=== PATIENT | male | born 1980 | race Caucasian/White ===

== ENCOUNTER 2020-07-21 12:04 | Emergency (ER) | payer OTHER ==
[~2020-07-21] VITALS: Ht 193 cm; Wt 153.3 kg
[2020-07-21] MEDS ORDERED: MEDROL DOSEPAK4 MG PO (15:29)
[2020-07-21] MEDS ORDERED: METHOCARBAMOL500 M1 PO (15:29)
== END 2020-07-21 15:31 | disposition home or self-care (01) ==
LOC: ED 12:04
DX: S39.012A Strain of muscle, fascia and tendon of lower back, initial encounter (principal); S86.912A Strain of unspecified muscle(s) and tendon(s) at lower leg level, left leg, initial encounter; Z79.899 Other long term (current) drug therapy; X58.XXXA Exposure to other specified factors, initial encounter; Y93.89 Activity, other specified; Y92.89 Other specified places as the place of occurrence of the external cause; Y99.8 Other external cause status

== ENCOUNTER 2021-04-14 13:38 | Emergency (ER) | payer OTHER ==
[~2021-04-14] VITALS: Ht 195.5 cm; Wt 155.1 kg
[~2021-04-14 13:38] MED LIST: MEDROL DOSEPAK4 MG PO; METHOCARBAMOL500 M1 PO
[2021-04-14] MEDS ORDERED: CLARITIN10 MG PO (14:08)
[2021-04-14] MEDS ORDERED: FLONASE ALLERG9.9 ML NAS (14:08)
== END 2021-04-14 14:14 | disposition home or self-care (01) ==
LOC: ED 13:38
DX: J30.9 Allergic rhinitis, unspecified (principal); Z20.822 Contact with and (suspected) exposure to COVID-19; E66.9 Obesity, unspecified; Z88.8 Allergy status to other drugs, medicaments and biological substances; Z79.899 Other long term (current) drug therapy; Z98.890 Other specified postprocedural states

== ENCOUNTER 2021-05-25 09:26 | Emergency (ER) | payer OTHER ==
[~2021-05-25] VITALS: Ht 193 cm; Wt 161.0 kg
[~2021-05-25 09:26] MED LIST changes: +CLARITIN10 MG PO; +FLONASE ALLERG9.9 ML NAS
[2021-05-25] MEDS ORDERED: METHOCARBAMOL500 M1 PO (13:22)
[2021-05-25] MEDS ORDERED: PREDNISONE20 M1 PO (13:22)
== END 2021-05-25 13:37 | disposition home or self-care (01) ==
LOC: ED 09:26
DX: M54.41 Lumbago with sciatica, right side (principal); J02.8 Acute pharyngitis due to other specified organisms; B34.8 Other viral infections of unspecified site; Z88.6 Allergy status to analgesic agent; Z79.899 Other long term (current) drug therapy

== ENCOUNTER 2021-06-18 15:18 | Emergency (ER) | payer OTHER ==
[~2021-06-18] VITALS: Ht 195.5 cm; Wt 156.5 kg
[~2021-06-18 15:18] MED LIST changes: +PREDNISONE20 M1 PO
[2021-06-18] MEDS ORDERED: HYDROCODONE-AC1 EAC1 PO (19:11)
== END 2021-06-18 19:48 | disposition home or self-care (01) ==
LOC: ED 15:18
DX: S20.212A Contusion of left front wall of thorax, initial encounter (principal); R10.12 Left upper quadrant pain; R07.81 Pleurodynia; Z98.890 Other specified postprocedural states; Z88.6 Allergy status to analgesic agent; Z79.899 Other long term (current) drug therapy; W22.8XXA Striking against or struck by other objects, initial encounter; Y93.16 Activity, rowing, canoeing, kayaking, rafting and tubing; Y92.828 Other wilderness area as the place of occurrence of the external cause; Y99.8 Other external cause status

== ENCOUNTER 2021-06-26 21:10 | Emergency (ER) | payer OTHER ==
[~2021-06-26] VITALS: Ht 195.5 cm; Wt 158.8 kg
[~2021-06-26 21:10] MED LIST changes: +HYDROCODONE-AC1 EAC1 PO
== END 2021-06-26 23:00 | disposition home or self-care (01) ==
LOC: ED 21:10
DX: S22.32XA Fracture of one rib, left side, initial encounter for closed fracture (principal); Z88.8 Allergy status to other drugs, medicaments and biological substances; Z79.899 Other long term (current) drug therapy; Z98.890 Other specified postprocedural states; X58.XXXA Exposure to other specified factors, initial encounter; Y93.9 Activity, unspecified; Y92.89 Other specified places as the place of occurrence of the external cause; Y99.8 Other external cause status

== ENCOUNTER 2021-08-14 12:12 | Emergency (ER) | payer OTHER ==
[~2021-08-14] VITALS: Ht 195.5 cm; Wt 154.2 kg
== END 2021-08-14 19:19 | disposition left against medical advice (07) ==
LOC: ED 12:12
DX: R06.02 Shortness of breath (principal); R05.9 Cough, unspecified; R19.7 Diarrhea, unspecified; R53.83 Other fatigue; Z53.21 Procedure and treatment not carried out due to patient leaving prior to being seen by health care provider

== ENCOUNTER 2021-09-20 18:55 | Emergency (ER) | payer OTHER ==
[~2021-09-20] VITALS: Ht 195.5 cm; Wt 149.7 kg
[2021-09-20 20:18] LABS: BASO # 0.1 10*3/uL (0.0-0.1); BASO % 0.6 % (0.0-1.0); EOS # 0.2 10*3/uL (0.0-0.4); EOS % 2.4 % (1.0-4.0); HEMATOCRIT 41.4 % (42.0-52.0); LYMPH # 3.3 10*3/uL (1.3-4.4); LYMPH % 33.6 % (27.0-41.0); MEAN CELL VOLUME 85.5 fl (80.0-94.0); MEAN CORPUSCULAR HGB 28.9 pg (27.0-31.0); MEAN CORPUSCULAR HGB CONC 33.8 g/dl (33.0-37.0); MEAN PLATELET VOLUME 9.6 fl (9.6-12.3); MONO # 0.7 10*3/uL (0.1-1.0); MONO % 7.5 % (3.0-9.0); NEUT # 5.5 10*3/uL (2.3-7.9); NEUT % 55.4 % (47.0-73.0); PLATELET COUNT AUTOMATED 300 10*3/uL (130-400); RED BLOOD COUNT 4.84 10*6/uL (4.50-5.90); WHITE BLOOD COUNT 9.9 10*3/uL (4.8-10.8)
[2021-09-20 20:45] LABS: ALBUMIN 3.4 gm/dl (3.1-4.5); ALKALINE PHOSPHATASE 82 U/L (45-117); BUN 13 mg/dl (7-24); CHLORIDE 109 mmol/L (98-107); CREATININE 1.05 mg/dL (0.70-1.30); SGOT/AST 19 IU/L (3-35); SGPT/ALT 31 U/L (12-78); SODIUM 139 mmol/L (136-145); TOTAL PROTEIN 7.9 gm/dL (6.4-8.2)
== END 2021-09-20 21:30 | disposition home or self-care (01) ==
LOC: ED 18:55
PROVIDERS: Internal Medicine
DX: J06.9 Acute upper respiratory infection, unspecified (principal); R79.82 Elevated C-reactive protein (CRP); Z88.6 Allergy status to analgesic agent

== ENCOUNTER 2021-09-22 07:23 | Emergency (ER) | payer OTHER ==
[~2021-09-22] VITALS: Ht 195.5 cm; Wt 104.3 kg
[2021-09-22 09:20] LABS: BASO # 0.1 10*3/uL (0.0-0.1); BASO % 0.9 % (0.0-1.0); EOS # 0.3 10*3/uL (0.0-0.4); EOS % 3.9 % (1.0-4.0); HEMATOCRIT 44.2 % (42.0-52.0); LYMPH # 2.4 10*3/uL (1.3-4.4); LYMPH % 37.4 % (27.0-41.0); MEAN CELL VOLUME 87.2 fl (80.0-94.0); MEAN CORPUSCULAR HGB 28.8 pg (27.0-31.0); MEAN PLATELET VOLUME 9.6 fl (9.6-12.3); MONO # 0.5 10*3/uL (0.1-1.0); MONO % 7.2 % (3.0-9.0); NEUT # 3.2 10*3/uL (2.3-7.9); PLATELET COUNT AUTOMATED 263 10*3/uL (130-400); RED BLOOD COUNT 5.07 10*6/uL (4.50-5.90); RED CELL DISTRI WIDTH 12.9 % (0-14.5); WHITE BLOOD COUNT 6.4 10*3/uL (4.8-10.8)
[2021-09-22 09:40] LABS: ALBUMIN 3.5 gm/dl (3.1-4.5); ALKALINE PHOSPHATASE 82 U/L (45-117); BUN 9 mg/dl (7-24); CHLORIDE 110 mmol/L (98-107); CPK 111 U/L (39-308); CREATININE 0.92 mg/dL (0.70-1.30); POTASSIUM 4.2 mmol/L (3.5-5.1); SGOT/AST 18 IU/L (3-35); SGPT/ALT 29 U/L (12-78); SODIUM 139 mmol/L (136-145); TOTAL PROTEIN 7.9 gm/dL (6.4-8.2)
[2021-09-22 09:41] LABS: TROPONIN I < 0.015 ng/ml (<0.045)
== END 2021-09-22 10:53 | disposition home or self-care (01) ==
LOC: ED 07:23
PROVIDERS: Emergency Medicine
DX: B34.9 Viral infection, unspecified (principal); Z20.822 Contact with and (suspected) exposure to COVID-19; Z88.6 Allergy status to analgesic agent

== ENCOUNTER 2021-10-11 10:16 | Emergency (ER) | payer OTHER ==
[~2021-10-11] VITALS: Ht 193 cm; Wt 149.7 kg
[2021-10-11 11:29] LABS: BASO % 0.5 % (0.0-1.0); EOS # 0.2 10*3/uL (0.0-0.4); EOS % 2.4 % (1.0-4.0); HEMATOCRIT 43.2 % (42.0-52.0); LYMPH % 31.9 % (27.0-41.0); MEAN CELL VOLUME 86.2 fl (80.0-94.0); MEAN CORPUSCULAR HGB 28.7 pg (27.0-31.0); MEAN CORPUSCULAR HGB CONC 33.3 g/dl (33.0-37.0); MEAN PLATELET VOLUME 9.8 fl (9.6-12.3); MONO # 0.4 10*3/uL (0.1-1.0); NEUT # 3.7 10*3/uL (2.3-7.9); NEUT % 58.6 % (47.0-73.0); PLATELET COUNT AUTOMATED 251 10*3/uL (130-400); RED BLOOD COUNT 5.01 10*6/uL (4.50-5.90); RED CELL DISTRI WIDTH 13.1 % (0-14.5); WHITE BLOOD COUNT 6.3 10*3/uL (4.8-10.8)
[2021-10-11 11:46] LABS: ALBUMIN 3.6 gm/dl (3.1-4.5); ALKALINE PHOSPHATASE 83 U/L (45-117); BUN 11 mg/dl (7-24); CHLORIDE 109 mmol/L (98-107); CREATININE 0.94 mg/dL (0.70-1.30); LIPASE 116 U/L (73-393); POTASSIUM 4.5 mmol/L (3.5-5.1); SGOT/AST 15 IU/L (3-35); SGPT/ALT 30 U/L (12-78); SODIUM 140 mmol/L (136-145); TOTAL PROTEIN 8.2 gm/dL (6.4-8.2)
== END 2021-10-11 13:25 | disposition home or self-care (01) ==
LOC: ED 10:16
PROVIDERS: Physician Assistant
DX: K52.9 Noninfective gastroenteritis and colitis, unspecified (principal); Z88.6 Allergy status to analgesic agent

== ENCOUNTER 2021-10-28 15:02 | Emergency (ER) | payer OTHER ==
[~2021-10-28] VITALS: Wt 147.4 kg
[2021-10-28] MEDS ORDERED: SEPTDS PO (16:09)
[2021-10-28] MEDS ORDERED: CEPHALEXIN500 M1 PO (16:09)
== END 2021-10-28 16:19 | disposition home or self-care (01) ==
LOC: ED 15:02
DX: L02.01 Cutaneous abscess of face (principal); Z20.822 Contact with and (suspected) exposure to COVID-19

== ENCOUNTER 2022-01-21 02:06 | Emergency (ER) | payer OTHER ==
[~2022-01-21] VITALS: Ht 193 cm; Wt 149.7 kg
[~2022-01-21 02:06] MED LIST changes: +CEPHALEXIN500 M1 PO; +MUCINEX DM 30/61 TAB PO; +SEPTDS PO; +ZYRTEC10 M2 PO
[2022-01-21 02:42] LABS: BASO % 0.4 % (0.0-1.0); EOS # 0.1 10*3/uL (0.0-0.4); LYMPH # 2.3 10*3/uL (1.3-4.4); LYMPH % 31.8 % (27.0-41.0); MEAN CELL VOLUME 85.1 fl (80.0-94.0); MEAN CORPUSCULAR HGB 28.5 pg (27.0-31.0); MEAN CORPUSCULAR HGB CONC 33.5 g/dl (33.0-37.0); MEAN PLATELET VOLUME 9.7 fl (9.6-12.3); MONO # 0.8 10*3/uL (0.1-1.0); MONO % 10.6 % (3.0-9.0); NEUT # 3.9 10*3/uL (2.3-7.9); NEUT % 54.4 % (47.0-73.0); PLATELET COUNT AUTOMATED 224 10*3/uL (130-400); RED BLOOD COUNT 5.05 10*6/uL (4.50-5.90); RED CELL DISTRI WIDTH 13.2 % (0-14.5); WHITE BLOOD COUNT 7.1 10*3/uL (4.8-10.8)
[2022-01-21] MEDS ORDERED: DESCOVY 200-251 EACH PO (02:47)
[2022-01-21] MEDS ORDERED: ZINC30 M1 PO (02:47)
[2022-01-21] MEDS ORDERED: VITAMIN D350 MC3 PO (02:48)
[2022-01-21 03:12] LABS: ALKALINE PHOSPHATASE 72 U/L (45-117); BUN 13 mg/dl (7-24); CHLORIDE 105 mmol/L (98-107); CREATININE 0.96 mg/dL (0.70-1.30); LIPASE 125 U/L (73-393); POTASSIUM 3.7 mmol/L (3.5-5.1); SGOT/AST 33 IU/L (3-35); SGPT/ALT 44 U/L (12-78); SODIUM 137 mmol/L (136-145); TOTAL PROTEIN 7.7 gm/dL (6.4-8.2)
[2022-01-21] MEDS ORDERED: OMEPRAZOLE40 MG PO (04:58)
== END 2022-01-21 05:01 | disposition home or self-care (01) ==
LOC: ED 02:06
PROVIDERS: Internal Medicine
DX: K21.9 Gastro-esophageal reflux disease without esophagitis (principal); Z88.6 Allergy status to analgesic agent; Z79.899 Other long term (current) drug therapy